=== PATIENT | female | born 1970 | race African-American/Black ===

== ENCOUNTER 2016-09-12 16:57 | Inpatient (IN) | payer OTHER ==
--- NOTE | ~2016-09-12 | PN ---
Unit #: [id number] #: [id number] Patient: ARTHUR LIZARRAGA [id number] [facility] [address] [place] [address] [id number] MR#: [id number] NAME: ARTHUR LIZARRAGA ROOM: 80 Age: 46 Sex: F Admission Date: 09/12/2016 : 1970 Attending Physician: Clifton Latham M.D. Admitting Physician: Clifton Latham M.D. Primary Care Physician: Disha ERAZO PROGRESS NOTES DATE OF SERVICE 09/14/2016 DISCUSSION Ms. Lizarraga is up and around participating in unit groups and activities today. She has ongoing detox symptoms including cramping, some nausea, frequent episodes of diarrhea, and agitation. However she is taking oral fluids and foods well and is participating actively in the group activities. She is alert and fully oriented. Her memory and concentration were fair. Her thought processes were logical and mildly circumstantial but nonpsychotic. ASSESSMENT Bipolar depressed; opiate dependence. PLAN Continue current treatment plan. Dictated by... Clifton Latham M.D. [facility]/to TD: 09/15/2016 14:37 JOB #: [id number] KACEY PROGRESS NOTES Page 1 of 1 X Clifton Latham MD PROGRESS NOTE
--- NOTE | ~2016-09-12 | DS ---
Unit #: [id number] #: [id number] Patient: ARTHUR CALDERON [id number] [facility] [address] [place] [address] [id number] MR#: [id number] NAME: ARTHUR CALDERON ROOM: [facility] Age: 46 Sex: F Admission Date: 09/12/2016 : 1970 Discharge Date: 09/16/2016 Attending Physician: Clifton Latham M.D. Primary Care Physician: Disha Cutler DISCHARGE SUMMARY REASON FOR ADMISSION Keesha is a 46-year-old woman, well known to me from previous admissions with a history of bipolar disorder and some drug abuse. She has been using increasing amounts of heroin, marijuana, and beer and has been off her bipolar medications. She was re-admitted for stabilization. DIAGNOSTIC STUDIES LABORATORY RESULTS: Please see hospital chart. HOSPITAL COURSE The patient was admitted and placed on suicide precautions and the opioid detox protocol. Her previous medications were initiated. She enrolled in dual diagnosis groups and activities with some episodes of detox, but otherwise good compliance. She was able to contract for safety on the date of discharge with no further suicidal ideation, intent, or plan. DISCHARGE DIAGNOSES AXIS I: Bipolar, depressed; opioid dependence; cannabis dependence. AXIS II: No diagnosis. AXIS III: Polysubstance withdrawal. AXIS IV: AXIS V: DISCHARGE INSTRUCTIONS The patient will follow up with [facility] and the CD-IOP at this facility. DISCHARGE MEDICATIONS Risperdal 1 mg b.i.d. for mood stability, Paxil 20 mg at bedtime for depression, Neurontin 600 mg b.i.d. as needed for anxiety, and trazodone 50 mg at bedtime as needed for insomnia. CONDITION AT DISCHARGE Improved. PROGNOSIS Fair to good. DIET AND ACTIVITY Per primary care physician. Unit #: [id number] #: [id number] Patient: ARTHUR CALDERON Dictated by... Clifton Latham M.D. [facility]/modl TD: 09/18/2016 00:57 JOB #: [id number] DISCHARGE SUMMARY Page 1 of 1 X Clifton Latham MD X DISCHARGE SUMMARY
--- NOTE | ~2016-09-12 | HP ---
Unit #: [id number] #: [id number] Patient: ARTHUR CALDERON [id number] [facility] [address] [place] [address] [id number] MR#: [id number] NAME: ARTHUR CALDERON ROOM: 80 Age: 46 Sex: F Admission Date: 09/12/2016 : 1970 Attending Physician: Clifton Latham M.D. Admitting Physician: Clifton Latham M.D. Primary Care Physician: Disha Cutler HISTORY AND PHYSICAL HISTORY OF PRESENT ILLNESS The patient is a 46-year-old female who has been admitted to [facility] for suicidal and homicidal ideations. She has had other admissions to this facility for the same. PAST MEDICAL HISTORY Nothing significant. PAST SURGICAL HISTORY Nothing reported. ALLERGIES Seroquel. HOME MEDICATIONS 1. Risperdal 1 mg p.o. b.i.d. 2. Paxil 20 mg p.o. daily. 3. Trazodone 50 mg p.o. at night. FAMILY MEDICAL HISTORY Medically noncontributory. SOCIAL HISTORY Endorses tobaccoism at half a pack per day. Drinks on occasion. She does admit to past history of cocaine abuse. REVIEW OF SYSTEMS CONSTITUTIONAL: Denies fever or chills. HEENT: Denies sore throat, ear pain, or runny nose. CARDIOVASCULAR: Denies chest pain, irregular heart rate. No palpitations. CHEST: Denies shortness of breath or cough. No hemoptysis. GI: Denies nausea, vomiting, or diarrhea, or chronic constipation. ENDOCRINE: Denies history of increased thirst or urination. No recent significant weight loss or gain. : Denies dysuria, frequency, or hematuria. SKIN: Denies any rashes. HEMATOLOGIC: Denies history of increased bleeding or bruising. MUSCULOSKELETAL: Denies any hot, swollen joints. No generalized pain. NEUROLOGIC: Denies problems with speech or vision. No frequent, severe headache, numbness, weakness, or tingling in extremities. Denies loss of bowel or bladder control. Unit #: [id number] #: [id number] Patient: ARTHUR CALDERON PHYSICAL EXAMINATION GENERAL: The patient is arousable, in no acute distress. VITAL SIGNS: Temperature 98.1, heart rate 56, respirations 16, blood pressure 110/77. She is 5 feet 2 inches and weighs 160 pounds. HEENT: Head is atraumatic, normocephalic. Pupils are equal, round, and reactive. Extraocular movements are intact. No discharge from ears or nose. NECK: Supple. Trachea is midline. HEART: Regular rate and rhythm. LUNGS: Clear. ABDOMEN: Soft, nontender. : Not done. SKIN: Warm and dry without any unusual rashes or lesions. EXTREMITIES: No clubbing, edema, or cyanosis. NEUROLOGIC: Cranial nerves II through XII are intact. No focal deficits. Sensory and motor function: Grossly normal. Moves all extremities well. Coordination: Gait normal. Deep tendon reflexes intact. IMPRESSION Psychiatric admission. RECOMMENDATIONS PSYCHIATRIC: Will be per psychiatry. MEDICAL: I seen no contraindication to participating in this facility activities. MEDICAL PROGNOSIS Fair. MEDICAL CONDITION Stable. Dictated by... Litzy Vasquez A.P.R.N. for Pollo Logan M.D. AM/ramone TD: 09/13/2016 10:54 JOB #: [id number] HISTORY AND PHYSICAL Page 1 of 1 X Litzy Vasquez APRN X HISTORY AND PHYSICAL
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
[2016-09-13 09:44] LABS: BASOPHIL# 0.1 X10e3 (0-0.3); BASOPHIL% 0.7 % (0-2.5); EOSINOPHIL# 0.3 X10e3 (0-0.7); EOSINOPHIL% 4.4 % (0.0-7.0); HEMATOCRIT 42.9 % (35.0-45.0); HEMOGLOBIN 13.5 gm/dL (12.0-16.0); LYMPHOCYTE# 3.2 X10e3 (1.0-3.5); LYMPHOCYTE% 43.2 % (17.0-45.0); MEAN CELL VOLUME 87.4 FL (83-96); MEAN CORPUSCULAR HEMOGLOBIN 27.6 PG (28-34); MEAN CORPUSCULAR HGB CONC 31.6 g/dL (30-36); MEAN PLATELET VOLUME 9.3 FL (6.5-11.5); MONOCYTE# 0.7 X10e3 (0-1.0); MONOCYTE% 9.6 % (3.0-12.0); NEUTROPHIL# 3.1 X10e3 (1.5-7.1); NEUTROPHIL% 42.1 % (40-75); PLATELET COUNT 211 X10e3 (140-420); RED BLOOD COUNT 4.91 X10e (3.90-5.30); RED CELL DISTRIBUTION WIDTH 14.4 % (11.0-15.5); WHITE BLOOD COUNT 7.3 X10e3 (4.0-10.5)
[2016-09-13 10:00] LABS: DIFF IND NO
[2016-09-13 10:23] LABS: ALBUMIN SERUM 3.5 g/dL (3.5-5.0); BILIRUBIN,TOTAL 0.4 mg/dL (0.2-2.0); CALCIUM SERUM 9.2 mg/dL (8.4-10.2); GLOM FILT RATE Estimated 77.7 mL/min (>60); POTASSIUM 4.3 mmol/L (3.5-5.1); PROTEIN TOTAL SERUM 6.1 g/dL (6.0-8.3)
[2016-09-17 09:58] LABS: AMPHETAMINE NEG (NEG); BARBITURATES NEG (NEG); BENZODIAZEPINES NEG (NEG); COCAINE NEG (NEG); MARIJUANA POS (NEG); OPIATES NEG (NEG); TRICYCLIC ANTIDEPRESSANTS NEG (NEG); U METHADONE NEG (NEG)
== END 2016-09-16 11:23 | disposition home or self-care (01) | DRG 897 ==
LOC: P1E 20:20
PROVIDERS: Psychiatry & Neurology Psychiatry
PROC: HZ2ZZZZ Detoxification Services for Substance Abuse Treatment (ICD-10-PCS; principal; 2016-09-12)
DX: F11.23 Opioid dependence with withdrawal (principal); R45.851 Suicidal ideations; F31.4 Bipolar disorder, current episode depressed, severe, without psychotic features; F12.10 Cannabis abuse, uncomplicated; F19.239 Other psychoactive substance dependence with withdrawal, unspecified; F14.10 Cocaine abuse, uncomplicated; G47.00 Insomnia, unspecified
CPT/HCPCS: 80053; 80307; 85025; 86592